=== PATIENT | male | born 1990 | race Caucasian/White ===

== ENCOUNTER 2021-12-02 13:48 | Emergency (ER) | payer OTHER ==
[~2021-12-02] VITALS: Ht 182.9 cm; Wt 77.1 kg
[2021-12-02] MEDS ORDERED: APAP W/CODEINE1 TA2 PO (16:02)
[2021-12-02] MEDS ORDERED: CEPHALEXIN500 MG PO (16:02)
[2021-12-02 16:16] VITALS: BP 153/84
== END 2021-12-02 16:16 | disposition home or self-care (01) ==
LOC: M.ERS 13:48
DX: M79.642 Pain in left hand (principal)